=== PATIENT | male | born 2000 | race Caucasian/White ===

== ENCOUNTER 2022-03-17 08:16 | Outpatient (CLI) | payer OTHER, SELFPAY ==
[2022-03-17 13:47] LABS: Albumin* 4.9 g/dL (3.3-5.0); Chloride* 104 mmol/L (96-114); Potassium* 3.7 mmol/L (3.6-5.1); Sodium* 142 mmol/L (135-149)
[2022-03-17 13:49] LABS: Aspartate Amino Transferase* 32 U/L (12-35); Bilirubin Total* 0.7 mg/dL (0.1-1.5); Carbon Dioxide* 28 mmol/L (20-32); Creatinine* 0.8 mg/dL (0.5-1.5); Estimated Glomerular Filt Rate 129 ml/min
[2022-03-17 13:50] LABS: Alanine Aminotransferase* 23 U/L (4-50); Alkaline Phosphatase* 62 U/L (40-150); Blood Urea Nitrogen* 16 mg/dL (5-24); Calcium* 9.4 mg/dL (8.4-10.6); Glucose* 94 mg/dL (60-115); Total Protein* 7.5 g/dL (6.0-8.3)
[2022-03-17 14:35] LABS: Iron* 103 ug/dL (49-181)
[2022-03-17 14:45] LABS: Percent Iron Saturation 31 % (20-50); Total Iron Binding Capacity 334 ug/dL (261-462)
== END 2022-03-17 08:17 | disposition home or self-care (01) ==
PROVIDERS: PCP Family Medicine; Visit Provider Nurse Practitioner Family
DX: Z00.00 Encounter for general adult medical examination without abnormal findings (principal); R42 Dizziness and giddiness; R63.4 Abnormal weight loss
CPT/HCPCS: 80053; 83540; 83550; 84443

== ENCOUNTER 2023-10-20 09:40 | Outpatient (CLI) | payer OTHER, SELFPAY | END 2023-10-20 09:41 | disposition home or self-care (01) | LOC: RAD 09:40 | PROVIDERS: PCP Family Medicine; Visit Provider Family Medicine | DX: R42 Dizziness and giddiness (principal); I35.1 Nonrheumatic aortic (valve) insufficiency; I34.0 Nonrheumatic mitral (valve) insufficiency; R55 Syncope and collapse | CPT/HCPCS: 93306 ==